=== PATIENT | female | born 1960 | race Caucasian/White ===

== ENCOUNTER 2017-10-20 17:53 | Inpatient (IN) | payer OTHER ==
[~2017-10-20] VITALS: Ht 168.9 cm; Wt 51.4 kg
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
--- NOTE | 2017-10-20 19:47 | CT SCAN REPORT ---
EXAMINATION: CT HEAD WITHOUT CONTRAST CT FACIAL BONES WITHOUT CONTRAST CT CERVICAL SPINE WITHOUT CONTRAST CLINICAL INFORMATION: 56-year-old woman post fall and head injury. COMPARISON: None. TECHNIQUE: Imaging was performed from the skull base to vertex without intravenous administration of contrast. In addition, helical noncontrast CT imaging was acquired through the cervical spine and facial bones and source images were reviewed along with axial reconstructions and sagittal and coronal MPRs. DLP: 1598 mGy-cm FINDINGS: HEAD: No intracranial mass, hemorrhage, or midline shift is visualized. There is moderate ventriculomegaly and diffuse sulcal prominence due to chronic volume loss. There is a lobular appearance of the lateral ventricles suggesting periventricular leukomalacia. No extra-axial collections are identified. FACIAL BONES: There is no evidence of an acute facial bone fracture. There is mild right premaxillary and facial soft tissue bruising. Mild mucosal thickening is seen in the ethmoid air cells. The orbits are unremarkable in appearance. CERVICAL SPINE: There is no evidence of acute cervical spine fracture. Vertebral bodies remain normal in height. Severe chronic degenerative changes are seen with reversal of the normal cervical lordosis and anterolisthesis of C2 on C3, C3 on C4, and C7 on T1. Degenerative endplate remodeling with subchondral sclerosis, marginal osteophyte formation, and severe loss of normal disc space is noted at C4-C5, C5-C6, C6-C7, and C7-T1. There is bulky multilevel facet arthrosis. Degenerative osseous fragmentation is seen at the atlantoaxial articulation. No pre- or paravertebral soft tissue abnormality is identified. Limited assessment of the lung apices is unremarkable. IMPRESSION: 1. No acute intracranial process or discrete facial bone fracture. Right facial soft tissue injury. 2. No acute cervical spine fracture or traumatic subluxation. Severe chronic spondylosis.
--- NOTE | 2017-10-20 19:55 | CT SCAN REPORT ---
EXAMINATION: CT ABDOMEN AND PELVIS WITHOUT CONTRAST CLINICAL INFORMATION: 57-year-old female patient with pelvic, abdominal, and lumbosacral spine pain. COMPARISON: None TECHNIQUE: Multidetector volumetric imaging was performed from the superior aspect of the liver through the pubic symphysis. Sagittal and coronal reformatted images were obtained on the technologist's workstation. Evidently, the patient could not raise her arms for this exam and therefore the study is compromised by beam hardening artifacts. DLP: 292 mGy-cm FINDINGS: MEDICAL RECORD CONSULTANT: Air is seen throughout the small bowel and air mixed with stool throughout the colon. There is mild stool impaction in the rectosigmoid colon. The patient appears cachectic with loss of body fat making interpretation difficult without IV or oral contrast. LUNG BASES: Dependent atelectasis is seen in both lower lobes. LIVER, GALLBLADDER, AND BILIARY TREE: The liver is normal in size, shape, and attenuation. No focal hepatic lesion or biliary ductal dilatation is present. The gallbladder is postprandial in appearance. PANCREAS: Unremarkable. SPLEEN: Unremarkable. ADRENAL GLANDS: Unremarkable. KIDNEYS AND URETERS: The kidneys are normal in size, shape, and attenuation. No hydronephrosis, hydroureter, or calculi seen. No perinephric stranding. BLADDER: Well distended and normal. GASTROINTESTINAL TRACT: Increased burden of formed stool throughout the colon. Mild impaction as mentioned above. ABDOMINAL WALL: No significant hernia is appreciated. LYMPH NODES: Normal. VASCULAR: Unremarkable. PELVIC VISCERA: Normal uterus. OSSEOUS STRUCTURES: Endplate depression involving the vertebral body at L1 may represent a Schmorl's node rather than an old fracture. There is disc disease at L5-S1. IMPRESSION: Increased burden of formed stool throughout the colon. Abnormal vertebral body at L1.
--- NOTE | 2017-10-20 19:59 | RADIOLOGY REPORT ---
EXAMINATION: XR HAND, LEFT CLINICAL INFORMATION: Left hand pain. Trauma. Per chart: Cerebral palsy. Patient unable to extend fingers. COMPARISON: None TECHNIQUE: PA, lateral, and oblique views of the left hand. FINDINGS: The patient has severe flexion contractures of the fingers and universal subluxations of the metacarpal phalangeal joints. No obvious fracture is seen. IMPRESSION: Flexion contractures involving the hand.
[2017-10-20 20:36] LABS: ABSOLUTE BASOPHIL COUNT 0 /CUMM (0.0-0.2); ABSOLUTE EOSINOPHIL COUNT 0.1 /CUMM (0.0-0.7); ABSOLUTE GRANULOCYTE CT 3.6 /CUMM (1.4-6.5); ABSOLUTE LYMPH COUNT 1.2 /CUMM (1.2-3.4); BASOPHIL % 0.3 % (0.0-2.0); EOSINOPHIL % 1.2 % (0-5); MEAN CORPUSCULAR HGB 30.5 PG (27.0-31.0); MEAN CORPUSCULAR VOLUME 92.5 FL (81.0-99.0); MEAN PLATELET VOLUME 9.6 FL (7.4-10.4); PLATELET COUNT 191 /CUMM (130-400); RBC DISTRIBUTION WIDTH 13.7 % (11.5-14.5); RED BLOOD CELL CT 4.32 /CUMM (4.20-5.40); WHITE BLOOD CELL COUNT 5.9 /CUMM (4.8-10.8)
[2017-10-20 20:40] LABS: PT 12.4 SEC (9.4-12.5); PTT 30 SEC (25-37)
--- NOTE | 2017-10-20 22:37 | RADIOLOGY REPORT ---
EXAMINATION: XR HIP, RIGHT CLINICAL INFORMATION: Subcapital fracture of the right hip COMPARISON: CT of the abdomen and pelvis done this evening. TECHNIQUE: AP and attempted frog leg lateral view of the right hip. of the right hip. FINDINGS: The exam confirms the presence of a impacted subcapital fracture of the right hip. A crosstable lateral view was not obtained. There is a significant increased burden of formed stool in the rectosigmoid colon. IMPRESSION: Subcapital fracture of the right hip confirmed.
[2017-10-21] MEDS ORDERED: ZOLOFT100 M1 PO (00:20)
[2017-10-21] MEDS ORDERED: VALPROIC ACID250 M1 PO (00:20)
--- NOTE | 2017-10-21 00:36 | Admission Core Measures ---
Acute Coronary Syndrome (CM) ACS Core Measures Acute Coronary Syndrome Diagnosis No Congestive Heart Failure (NEW) CHF Core Measures Congestive Heart Failure Diagnosis No Cerebrovascular Accident (NEW) CVA Core Measures CVA/TIA Diagnosis No Venous Thromboembolism VTE Core Mp (View Protocol) VTE Risk Factors Age>40 No Mechanical VTE Prophylaxis d/t N/A MechProphylax Ordered No VTE Pharm Prophylaxis d/t NA PharmProphylax ordered Problem List As ranked by this Provider includes Assessment & Plan 1. Closed right hip fracture HOME MEDS Home Med List Sertraline HCl (Zoloft) 100 MG TABLET 1 TAB PO DAILY DEPRESSION (Reported) Valproic Acid 250 MG CAPSULE 3 CAP PO BID SEIZURES (Reported)
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
--- NOTE | 2017-10-21 01:38 | RADIOLOGY REPORT ---
EXAMINATION: XR PORTABLE CHEST CLINICAL INFORMATION: Preop. COMPARISON: None TECHNIQUE: Portable frontal view of the chest was obtained. 12:47 AM FINDINGS: Lung volume is low. Lungs are clear. No pulmonary vascular congestion. Cardiomediastinal contours are normal. There is no pleural effusion and there is no pneumothorax. IMPRESSION: Unremarkable examination.
[2017-10-21 02:48] VITALS: BP 110/60
[2017-10-21 06:34] VITALS: BP 102/60
[2017-10-21 14:08] VITALS: BP 110/58
--- NOTE | 2017-10-21 18:59 | Operative Report ---
Operative/Inv Procedure Report Surgery Date: 10/21/17 Name of Procedure: Repair right impacted femoral neck fracture with multiple cannulated screws. Pre-Operative Diagnosis: Right impacted femoral neck fracture. Post-Operative Diagnosis: Same. Estimated Blood Loss: scant Surgeon/Cab Starter: Jb Hidalgo MD Anesthesia: laryngeal mask airway Monitors: EKG/blood pressure/oxygen saturation. IV Fluids: 800 mL crystalloid. Implants: [place] 6.5 mm partially threaded cancellus screws 4. Urine Output: None. Drains: None. Specimens: None. Microbiology: None. Tourniquet: None. Complications: None known. Condition: Stable. Operative Indication: The patient is a 56-year-old female with cerebral palsy who sustained a mechanical trip and fall very early this morning landing on her right hip and also striking the right side of her face. She was brought to the [facility] emergency room where she underwent CT scanning of the abdomen and pelvis. She was apparently complaining of right lower extremity pain and inability to ambulate. This was communicated nonverbally. The original CT scan did not show any obvious fractures, subluxations, or dislocations. A follow-up read on the CAT scan was suggested that there was an impacted femoral neck fracture. Orthopedic consultation was called. I did review the CAT scan and recommended that we can get better information with plain x-rays of the right hip and pelvis. These were ordered and did confirm an impacted femoral neck fracture. The patient was admitted to the hospital in anticipation of performing a repair of the right impacted femoral neck fracture stabilizing the femoral neck fracture with multiple partially threaded cannulated screws. I did discuss with the patient's brother who is her power of attorney law clerk the risks and benefits and expected outcomes of nonoperative management of the fracture which was discouraged given that the patient is an active ambulator. We did discuss the same with respect to surgical intervention with repair of the femoral neck fracture with multiple cannulated screws. With repair of the femoral neck fracture with multiple cannulated screws. All of the power of attorney law clerk's questions were answered at length. After discussion of these issues and answering all of the power of attorney law clerk's questions, surgical consent was obtained. Operative/Procedure Note Note: The patient was brought to the operating room on her hospital bed. The anesthesia staff administered a general anesthetic via LMA. A dose of IV antibiotics was given for infection prophylaxis. The patient was transferred to the OR table and positioned on the table in standard fashion for right hip repair surgery. This did include placing the perineum down against a well- padded perineal post. The affected right lower extremity was placed into a well -padded leg/ankle/foot sleeve which was overwrapped with Coban for friction and then secured into the ipsilateral traction boot. The contralateral left lower extremity "well leg" was supported on a well-padded well leg sood protecting the peroneal nerve and maintaining the left lower extremity in a position of flexion, abduction, and external rotation so that the C-arm can come in between the legs to image the right hip. The right upper extremity was secured across her body over and about padding to get that out of the way. All bony prominences in general were well-padded. The center board for the fracture table was removed. The fracture table was elevated to maximum height. The C- arm was brought in between the legs and we did confirm that we could adequately image the right hip and proximal femur in both coronal and sagittal planes (AP and lateral views). We did also confirm that this was an impacted femoral neck fracture. The fracture reduction and alignment was felt to be amenable for stabilization with multiple cannulated screws. The C-arm was removed temporarily. The right lower extremity was then prepped and draped in usual sterile fashion. The C-arm was brought back in and we did once again confirm adequate AP visualization of the right hip and proximal femur. We used a Nevarez elevator placed over the anterior hip and thigh to help localize the level of the lesser trochanter. This was marked on the skin as a reference point. We next marked the lateral hip and upper thigh for a a direct lateral approach to the proximal femur and lower intertrochanteric flare of the greater trochanter. The skin incision was created. Sharp dissection was continued down through the skin and subcutaneous tissues. We placed retractors deeper as we continued to dissect down to the subcutaneous tissues. The fascia jay was divided longitudinally and then retracted. We split the fibers of the vastus lateralis directly in line with the rent in the fascia jay. The vastus lateralis was stripped from the lateral femur using a Nevarez elevator extending onto the anterior posterior surfaces of the proximal femoral shaft. Godoy retractors were placed for visualization. We next used the parallel pin guide for the threaded guide pins for the 6.5 mm cannulated screws. The first guidepin was run up beginning inferiorly through the lateral femoral cortex at the level of the lesser trochanter and directing that screw up towards the femoral head. This particular guidepin ran up along the inferior femoral neck on the AP view and along the midaxis on the lateral view of the hip. The guidepin was clearly located within the femoral neck and head without violating the cortex. The guidepin was advanced up to the level of subchondral bone of the femoral head. We next used the parallel pin guide place 3 additional parallel guide pins for 3 additional 6.5 mm partially threaded cancellus screws. This was done under fluoroscopic control creating a imani shaped in arrangement. All guidepins as noted above were advanced the level of the subchondral bone. We next placed appropriate length partially threaded 6.5 mm cannulated screws x4 over the guide pins All screws were tightened down snugly. We did confirm as this was performed that the fracture reduction and alignment was maintained and not shifted with placement of the guidepins and the cannulated screws. We did also confirm that the hardware was positioned and secured satisfactorily. Final AP and lateral fluoroscopic images were saved for hard copy. Attention was directed towards closure. The wound was copiously irrigated multiple times. The fibers of the vastus lateralis were allowed to fall back into more or less normal approximation over the lateral proximal femoral shaft. The wound was irrigated again. The fascia jay was then repaired using 0 Vicryl placed in [id number] fashion. The subcutaneous tissues were irrigated and then repaired in layers with a couple of layers of 0 Vicryl suture placed in interrupted buried fashion to close down the space. A couple of layers were required due to the depth of the adipose tissue. The more superficial subcutaneous tissues were approximated using 2-0 Vicryl placed into the subdermal layer also in simple buried fashion. The skin margins were then approximated with skin stapler. The wound was washed and dried. Adaptic dressings patella staple line followed by sterile gauze dressings and abdominal pads which were held in place. The tape. The center board for the fracture table was returned. The patient's ipsilateral right leg was taken out of the traction boot. The contralateral well leg was taken down out of the well leg sood with both legs placed in supine extension. The patient was awakened from general anesthesia. She was stretcher to the hospital bed and then brought to the recovery room in stable condition having tolerated the procedure well. Findings: 1) Fracture reduction, alignment, and length maintained. 2) Acceptable hardware position and fixation achieved. Discharge Disposition: PACU
[2017-10-21 19:58] VITALS: BP 110/62
--- NOTE | 2017-10-21 21:19 | Cons- Medical ---
Jackie Mccann [birth year]: General Information and HPI Consulting Request Date of Consult: 10/21/17 Requested By: Jb Hidalgo MD Reason for Consult: Comanagement for her chronic medical conditions Source of Information: family, old records Exam Limitations: unable to give history History of Present Illness: Patient is 56-year-old female with past medical history significant for cerebral palsy nonverbal at baseline, epilepsy/seizure disorder, depression came after mechanical fall resulted in impacted right femoral neck fracture admitted under surgical services currently status post repair head impacted femoral neck fracture with multiple cannulated screw use. Postoperatively she remained hemodynamically stable. She denied any chest pain, denying any pain at surgery site. Her surgery went well and she was alert and saturating fine. Patient had baseline coughing while eating but family was agreeable to start her on regular diet. At baseline she is able to ambulate with assist of one or 2 people. Denied any frequent falls for any fracture in the past. Allergies/Medications Allergies: Coded Allergies: No Known Drug Allergies (Intermediate, NONE 10/20/17) Current Medications: Current Medications Sig/Chip Start time Last Medication Dose Route Stop Time Status Admin Acetaminophen 1,000 MG Q6H 10/21 2014 AC 10/22 N/A 1 UNIT IV 10/22 1429 0104 Cefazolin Sodium 2 GM IQ8 10/22 0000 AC 10/22 N/A 1 UNIT IV 10/22 0829 0006 Dextrose/Sodium 1,000 ML .[id number] 10/20 2345 AC 10/21 Chloride IV 1422 Divalproex Sodium 750 MG BID 10/21 1000 DC 10/21 PO 1033 Fentanyl Citrate 250 MCG .STK-MED ONE 10/21 1538 DC IM 10/21 1539 Heparin Sodium 5,000 UNIT Q8 10/21 0600 AC 10/21 (Porcine) SC 2224 Morphine Sulfate 2 MG Q2P PRN 10/21 2014 AC 10/21 IV 2303 Morphine Sulfate 4 MG Q4 HRS NEEDED PRN 10/21 0600 DC 10/21 IV 1422 Morphine Sulfate 4 MG Q4 HRS NEEDED PRN 10/21 0015 DC 10/21 IV 0018 Patient Medication 1 ED ONE ONE 10/21 1145 DC 10/21 Teaching ED 10/21 1146 2046 Sertraline HCl 100 MG DAILY 10/21 1000 AC 10/21 PO 1033 Review of Systems Review of Systems Constitutional: Denies: chills, diaphoresis. EENTM: Reports: see HPI. Cardiovascular: Denies: chest pain, edema. Respiratory: Denies: cough, hemoptysis. GI: Denies: abdominal pain, bloating. Genitourinary: Denies: discharge, dysuria. Musculoskeletal: Reports: see HPI. Neurological/Psychological: Reports: see HPI. Past History Travel History Traveled to [place] past 21 day No Medical History Blood Transfusion Hx: No Neurological: CEREBRAL PALSY EPILEPSY EENT: NONE Cardiovascular: NONE Respiratory: pneumonia Gastrointestinal: constipation Hepatic: NONE Renal: urinary incontinence Musculoskeletal: fracture Psychiatric: anxiety, depression Endocrine: NONE Blood Disorders: NONE Cancer(s): NONE GIFTS OFFICER/Reproductive: NONE Surgical History Surgical History: non-contributory Psychosocial History Where Do You Live? Home Services at Home: None Smoking Status: Never Smoked ETOH Use: denies use Exam & Diagnostic Data Last 24 Hrs of Vital Signs/I&O Vital Signs Date Time Temp Pulse Resp B/P B/P Pulse O2 O2 Flow FiO2 Mean Ox Delivery Rate 10/22 0000 98 Nasal 2.0L Cannula 10/21 2250 98.1 74 20 132/86 98 Room Air 10/21 1958 98.1 70 16 110/62 93 Nasal 2.0L Cannula 10/21 1435 Room Air 10/21 1408 98.6 79 20 110/58 92 Room Air 10/21 0634 98.8 86 20 102/60 90 Room Air 10/21 0300 90 Room Air 10/21 0248 98.3 79 20 110/60 90 Room Air Intake & Output 10/22 0800 10/22 0000 10/21 1600 Intake Total 855 560 Output Total Balance 855 560 Intake, IV 375 500 Intake, Oral 480 60 Patient 99 lb 15.99 oz Weight Weight Reported by Patient Measurement Method Physical Exam General Appearance: alert, comfortable Head: atraumatic Respiratory: normal breath sounds Cardiovascular: regular rate/rhythm Gastrointestinal: soft, non-tender Last 24 Hrs of Labs/Jack: NONE Diagnostic Data CXR Results IMPRESSION: Unremarkable examination. Other Results IMPRESSION: Subcapital fracture of the right hip confirmed. Assessment/Plan Assessment/Plan Patient is a 56-year-old female with history of cerebral palsy, seizure disorder and depression came to [place] ER after a mechanical fall resulted in an impacted right femoral neck fracture status post repair right impacted femoral neck fracture with multiple cannulated screws. During her hospital stay following issues is to be addressed 1. Femoral neck fracture status post repair 2. History of cerebral palsy and seizure disorder 3. History of anxiety Plan 1. Patient should continue on her home dose of valproic acid 250 mg twice a day 2. Please continue Zoloft 100 mg 3 times a day 3. Adequate analgesia 4. Pharmacological DVT prophylaxis 5. Formal swallow evaluation if needed 6. Physical therapy evaluation and treatment Consult Acknowledgment - Thank you for your consult request. Brannon Tay MD 10/22/17 1529: General Information and HPI Allergies/Medications Home Med List: Sertraline HCl (Zoloft) 100 MG TABLET 1 TAB PO DAILY DEPRESSION (Reported) brand name, no generic Valproic Acid 250 MG CAPSULE 3 CAP PO BID SEIZURES (Reported) brand name, no generic Exam & Diagnostic Data Last 24 Hrs of Vital Signs/I&O Vital Signs Date Time Temp Pulse Resp B/P B/P Pulse O2 O2 Flow FiO2 Mean Ox Delivery Rate 10/22 1458 98.3 91 20 122/62 93 Nasal 2.0L Cannula 10/22 1122 Room Air 10/22 1106 Room Air 10/22 1058 Room Air 10/22 0645 98.0 82 20 90/50 97 Nasal 2.0L Cannula 10/22 0000 98 Nasal 2.0L Cannula 10/21 2250 98.1 74 20 132/86 98 Room Air 10/21 1958 98.1 70 16 110/62 93 Nasal 2.0L Cannula Intake & Output 10/22 1600 10/22 0800 10/22 0000 Intake Total 730 855 Output Total Balance 730 855 Intake, IV 650 375 Intake, Oral 80 480 Patient 99 lb Weight Assessment/Plan Consult Acknowledgment - Thank you for your consult request. Attending MD Review Statement Attending Statement Attending MD Statement: examined this patient, discuss w/resident/PA/MODELING ANALYST, agreed w/resident/PA/MODELING ANALYST, discussed with family, reviewed EMR data (avail), reviewed images, amended to note Attending Assessment/Plan: Ms. Keller is seen prior to her surgery. History obtained from family notes that she had a mechanical fall striking the right side of her face and her right hip on the evening prior to her admission. There was no loss of consciousness she was unable to bear weight on her right lower extremity. She was evaluated in the emergency department with negative radiographic findings of her head and face but an impacted fracture of her right femoral neck was noted. 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 She is also on current medication for epilepsy and has recently been treated for depression. She is allergic to delay. She was hospitalized for pneumonia in 1991. View of systems is as noted above. Her vital signs are stable. Physical exam is as noted above. Problems: -Right hip fracture -Quadriparesis secondary to cerebral palsy -Seizure disorder -Depression Plan: -Management of her fracture as per the orthopedic team -Vital signs as per routine -Analgesia as per orthopedics -Continue her maintenance medications.
[2017-10-21 22:50] VITALS: BP 132/86
[2017-10-22 06:45] VITALS: BP 90/50
--- NOTE | 2017-10-22 08:15 | RADIOLOGY REPORT ---
EXAMINATION: XR HIP, RIGHT CLINICAL INFORMATION: 56-year-old female with subcapsular fracture of the right hip, for pinning. COMPARISON: Right hip done on 10/20/2017. TECHNIQUE: Frontal and frog leg lateral fluoroscopic spot views of the right hip were obtained at the time of the procedure. Fluoroscopy time: 40.2 seconds. FINDINGS: Multiple radiopaque screws are seen placed across the right femoral neck, appear in good position. The bony alignment is intact. The soft tissues are unremarkable. IMPRESSION: Postsurgical changes at right hip showing intact hardware and satisfactory alignment.
--- NOTE | 2017-10-22 10:40 | PN- Orthopedic ---
Bethanie Crowley 10/22/17 1024: Subjective Subjective: Patient is nonverbal and unable to provide a history at this time. Brother is at bedside and is able to provide some medication. The first issue is that the mother usually provides her 24-hour care however, she is ill at this time and is unable to perform/help with her ADLs so they are requesting short-term rehabilitation placement post discharge. The next issue is that nutrition felt that she needed a swallow evaluation. At home the family gives her some liquids and a regular diet which is cut up and not pureed. They have not had any issues with this including aspiration pneumonia. She has also had some recent weight loss after her primary caregiver got sick and they're working on getting her back to her baseline of 123 pounds. He has been doing well with adding protein supplementations, high-calorie diet, and increased protein and are requesting that this be continued upon discharge. Her brother feels that the pain is well- controlled at this time. She has no issues with taking pills and we discussed switching from IV pain medication to by mouth medications and he is in agreement with this plan. He also states that she has not had a bowel movement since prior to admission and has never had a bowel regimen in the past. No other issues or complaints per nursing. Objective Vital Signs and I&Os Vital Signs Date Time Temp Pulse Resp B/P B/P Pulse O2 O2 Flow FiO2 Mean Ox Delivery Rate 10/22 0645 98.0 82 20 90/50 97 Nasal 2.0L Cannula 10/22 0000 98 Nasal 2.0L Cannula 10/21 2250 98.1 74 20 132/86 98 Room Air 10/21 1958 98.1 70 16 110/62 93 Nasal 2.0L Cannula 10/21 1435 Room Air 10/21 1408 98.6 79 20 110/58 92 Room Air Intake & Output 10/22 1600 10/22 0800 10/22 0000 10/21 1600 10/21 0800 10/21 0000 Intake Total 730 855 560 400 0 Output Total Balance 730 855 560 400 0 Intake, IV 650 375 500 400 Intake, Oral 80 480 60 0 0 Number 0 Bowel Movements Patient 99 lb 99 lb 15.99 oz 103 lb 108 lb Weight Weight Reported by Patient Reported by Patient Measurement Method Physical Exam: General: Alert, awake, no acute distress Abdomen: Soft, nontender, nondistended Hip: Right hip dressing is clean, dry, and intact with minimal serosanguineous strikethrough, no surrounding skin edema, erythema, ecchymosis, signs of hematoma or seroma Extremities: Mild contractures x 4, no clubbing, edema, or cyanosis Current Medications: Current Medications Sig/Chip Start time Last Medication Dose Route Stop Time Status Admin Acetaminophen 325 MG Q4P PRN 10/22 0845 AC PO Acetaminophen 1,000 MG Q6H 10/21 2014 AC 10/22 N/A 1 UNIT IV 10/22 1429 1022 Cefazolin Sodium 2 GM IQ8 10/22 0000 DC 10/22 N/A 1 UNIT IV 10/22 0829 0830 Dextrose/Sodium 1,000 ML .[id number] 10/20 2345 10/21 Chloride IV 1422 Divalproex Sodium 750 MG BID 10/21 1000 DC 10/21 PO 1033 Docusate Sodium 100 MG BID 10/22 1000 AC PO Fentanyl Citrate 250 MCG .STK-MED ONE 10/21 1538 DC IM 10/21 1539 Haloperidol 5 MG .STK-MED ONE 10/21 1850 DC IM 10/21 1851 Heparin Sodium 5,000 UNIT Q8 10/21 0600 10/22 (Porcine) SC 0459 Morphine Sulfate 2 MG Q2P PRN 10/22 0845 AC IV Morphine Sulfate 2 MG Q2P PRN 10/21 2014 AC 10/22 IV 1020 Morphine Sulfate 4 MG Q4 HRS NEEDED PRN 10/21 0600 DC 10/21 IV 1422 Oxycodone/ 1 TAB Q4P PRN 10/22 0845 AC Acetaminophen PO Oxycodone/ 2 TAB Q4P PRN 10/22 0845 AC 10/22 Acetaminophen PO 1020 Patient Medication 1 ED ONE ONE 10/21 1145 DC 10/21 Teaching ED 10/21 1146 2046 Polyethylene Glycol 17 GM DAILY 10/22 1000 AC PO Sertraline HCl 100 MG DAILY 10/21 1000 AC 10/22 PO 1019 Results Last 48 Hours of Labs: Laboratory Tests 10/20 2018 Chemistry Sodium (137 - 145 mmol/L) 141 Potassium (3.5 - 5.1 mmol/L) 4.0 Chloride (98 - 107 mmol/L) 98 Carbon Dioxide (22 - 30 mmol/L) 32 H Anion Gap (5 - 16) 10 BUN (7 - 17 mg/dL) 19 H Creatinine (0.5 - 1.0 mg/dL) 0.7 Estimated GFR (>60 ml/min) > 60 BUN/Creatinine Ratio (7 - 25 %) 27.1 H Glucose (65 - 99 mg/dL) 106 H Calcium (8.4 - 10.2 mg/dL) 10.3 H Total Bilirubin (0.2 - 1.3 mg/dL) 0.6 AST (14 - 36 U/L) 38 H ALT (9 - 52 U/L) 32 Alkaline Phosphatase (<127 U/L) 70 Total Protein (6.3 - 8.2 g/dL) 7.3 Albumin (3.5 - 5.0 g/dL) 4.1 Globulin (1.9 - 4.2 gm/dL) 3.2 Albumin/Globulin Ratio (1.1 - 2.2 %) 1.3 Coagulation PT (9.4 - 12.5 SEC) 12.4 INR (0.90 - 1.19) 1.14 APTT (25 - 37 SEC) 30 Hematology CBC w Diff NO MAN DIFF REQ WBC (4.8 - 10.8 /CUMM) 5.9 RBC (4.20 - 5.40 /CUMM) 4.32 Hgb (12.0 - 16.0 G/DL) 13.2 Hct (37 - 47 %) 40.0 MCV (81.0 - 99.0 FL) 92.5 MCH (27.0 - 31.0 PG) 30.5 MCHC (33.0 - 37.0 G/DL) 33.0 RDW (11.5 - 14.5 %) 13.7 Plt Count (130 - 400 /CUMM) 191 MPV (7.4 - 10.4 FL) 9.6 Gran % (42.2 - 75.2 %) 61.0 Lymphocytes % (20.5 - 51.1 %) 20.3 L Monocytes % (1.7 - 9.3 %) 17.2 H Eosinophils % (0 - 5 %) 1.2 Basophils % (0.0 - 2.0 %) 0.3 Absolute Granulocytes (1.4 - 6.5 /CUMM) 3.6 Absolute Lymphocytes (1.2 - 3.4 /CUMM) 1.2 Absolute Monocytes (0.10 - 0.60 /CUMM) 1.0 H Absolute Eosinophils (0.0 - 0.7 /CUMM) 0.1 Absolute Basophils (0.0 - 0.2 /CUMM) 0 Recent Imaging Studies: Right hip x-ray 10/21/2017: Postsurgical changes at right hip showing intact hardware and satisfactory alignment. Chest x-ray 10/21/2017: Lung volume is low. Lungs are clear. No pulmonary vascular congestion. Cardiomediastinal contours are normal. There is no pleural effusion and there is no pneumothorax. Assessment/Plan Assessment/Plan This is a 56-year-old female past medical history significant for cerebral palsy and epilepsy who is postoperative day #1 status post repair of right femoral neck fracture with cannulated screws. Progressing well postoperatively. Plan for today will be as follows: 1. Speech evaluation for dietary recommendations and swallow evaluation to follow-up 2. Continue with physical therapy and partial weightbearing 3. Continue IV pain medications for breakthrough, by mouth pain medications ordered as well as a bowel regimen 4. Continue home medications 5. Antibiotics discontinued 6. Continue pharmaceutical and mechanical DVT prophylaxis, will start Eliquis tomorrow 7. Keep dressing in place, team to change dressing tomorrow 8. We'll discuss short-term rehabilitation placement with case management 8. Case will be discussed with Dr. Hidalgo to make sure he is in agreement with the plan of care Problem List: 1. Subcapital fracture of right hip 2. Closed right hip fracture 3. Status post-operative repair of hip fracture Core Measures Venous Thromboembolism VTE Risk Factors Age>40 No Mechanical VTE Prophylaxis d/t N/A MechProphylax Ordered No VTE Pharm Prophylaxis d/t NA PharmProphylax ordered Jb Hidalgo MD 10/22/17 1313: Attending MD Review Statement Attending Statement Attending MD Statement: examined this patient, discuss w/resident/PA/WET MIXER, agreed w/resident/PA/WET MIXER, discussed with family Talia Kelly 10/22/17 1531: Addendum Addendum Per Swallow Eval Recommendations: Assessment: CONSULT RECEIVED, CHART REVIEWED. PT STARTED ON REGULAR DIET W THINS. FAMILY PRESENT - REPORT PT HAS BEEN COUGHING W PO INTAKE "FOR YEARS" BUT DENY ANY RECENT PNEUMONIAS. THEY REPORT PT NON VERBAL BUT COMMUNICATES VIA SIGN. THEY ALSO REPORT PT FEEDS HERSELF. FAMILY REPORTS PT NOT A COGNITIVE BASELINE AT THIS TIME WHICH THEY FEEL IS D/T PAIN MEDS. PT SEEN AT BEDSIDE - AWAKE, ALERT, SEATED UPRIGHT IN CERVICAL EXTENSION POSITION. INTERMITTENT SIMPLE COMMAND FOLLOWING. DOES ATTEMPT TO SIGN TO COMMUNICATE. REGULAR LUNCH TRAY AT BEDSIDE, FAMILY ASSISTING W SELF FEEDING. PT SEEN SELF ADMINSITERING 3 SIPS THINS FROM SIPPY CUP W RED LIP ROUNDING/ORAL CONTAINMENT, REDUCED ORAL CONTROL BUT SEEMINGLY PROMPT HYOLARYNGEAL ELEVATION TO PALPATION W/O OVERT S/S OF ASPRIATION W/O CHANGE IN RESPIRATIONS. TRIAL PUREE FED BY FAMILY W SLOWED ORAL TRANSIT BUT FULL INTRAORAL CLEARANCE AND NO OVERT S/S OF ASPIRATION. TRIAL SOFT SOLIDS (FAMILY DID NOT FEED PT ANY "HARD" SOLIDS SUCH RAW CARROTS) W PROLONGED, INEFFICIENT, REDUNDANT MASTICATION W MILD ORAL RESIDUAL WHICH FAMILY CUED PT TO TAKE LIQUID SIP WHICH LARGELY CLEARED. OVERALL SUSPECT PT'S SWALLOW FUNCTION AT OR CLOSE TO BASE- LINE. SPOKE W FAMILY AT LENGTH RE: DIET OPTIONS. THEY ARE ADAMANTLY AGAINST PUREE/GROUND DIET BUT WERE RECEPTIVE TO DOWNGRADE TO SOFT CHOPPED DIET. ALSO DISCUSSED PT'S CURRENT SWALLOW STATUS, ASP RISKS/CONSEQUENCES AT LENGTH. FAMILY VERBALIZED UNDERSTANDING BUT WISH TO CONT ON SOFT/ CHOPPED W THINS REC - FULL CHOPPED W THIN LIQUIDS; MEDS IN PUREE; ASPIRATION PRECAUTIONS; SMALL BITES/SIPS; PT SEATED UPRIGHT; ALLOW PT TO SELF FEED ABLE. ST TO F/U FOR DIET TOLERANCE, STRATEGY TRAINING AND FAMILY EDUCATION. RECS/RESULTS D/W PT, FAMILY AND NURSING.
[2017-10-22 14:58] VITALS: BP 122/62
--- NOTE | 2017-10-22 15:39 | Patient Discharge Instructions ---
See Addendum Discharge Instructions General Discharge Information You were seen/treated for: Right femoral neck fracture You had these procedures: ORIF right femoral neck with cannulated screw placement Watch for these problems: Increasing pain despite the use of pain medications Swelling, Redness, drainage from incision Fever greater than 101.5 Do not soak the wound: Yes Other wound care: Keep wound clean and dry Special Instructions: Partial weight bearing LLE pt has baseline urinary incontinence, retained while in hospital, post op needed fagan, removed 10/25. please straight cath or replace fagan prn Diet Continue normal diet: Yes Recommended Diet: Regular, soft, chopped Activity Full Activity/No Limits: No Activity Self Limited: Yes Acute Coronary Syndrome Inclusion Criteria At DC or during hospital stay patient has or had the following: ACS DIAGNOSIS No Discharge Core Measures Meds if any: Prescribed or Continued at Discharge Meds if any: NOT Prescribed or Continued at Discharge Congestive Heart Failure Inclusion Criteria At DC or during hospital stay patient has or had the following: CHF DIAGNOSIS No Discharge Core Measures Meds if any: Prescribed or Continued at Discharge Meds if any: NOT Prescribed or Continued at Discharge Cerebrovascular accident Inclusion Criteria At DC or during hospital stay patient has or had the following: CVA/TIA Diagnosis No Discharge Core Measures Meds if any: Prescribed or Continued at Discharge Meds if any: NOT Prescribed or Continued at Discharge Venous thromboembolism Inclusion Criteria VTE Diagnosis No VTE Type NONE VTE Confirmed by (Test) NONE Discharge Core Measures - Per Current guidelines, there needs to be overlap - treatment for the first 5 days of Warfarin therapy. - If discharged on Warfarin prior to 5 days of - overlap therapy, the patient will need to be - assessed for post discharge needs including - *Post discharge parental anticoagulation - *Warfarin and/or parental anticoagulation education - *Follow up date to check INR post discharge At least 5 days overlap therapy as Inpatient No Meds if any: Prescribed or Continued at Discharge Note: Overlap Therapy is Warfarin and Anticoagulant Meds if any: NOT Prescribed or Continued at Discharge
[2017-10-22] MEDS ORDERED: COLACE100 M1 PO (15:41)
[2017-10-22] MEDS ORDERED: MIRALAX17 G1 PO (15:41)
[2017-10-22] MEDS ORDERED: PERCOCET 5-3251 EACH PO (15:41)
[2017-10-22] MEDS ORDERED: ELIQUIS2.5 M1 PO (15:41)
--- NOTE | 2017-10-22 15:41 | PN- Att Addend ---
Attending Addendum Attending Brief Note Ms. Johnson is status post repair of her right hip fracture. She is now on oral analgesics with when necessary parenteral analgesia. She is now on her maintenance medications and tolerating by mouth. Constipation has been noted. Her vital signs are stable but she is requiring 2 L of nasal cannula oxygen at this time. She is in no acute distress and responds appropriately with gestures to verbal queries. Her pulmonary and cardiac exams are benign. Postoperative radiographic studies are satisfactory. A swallowing evaluation has been obtained which recommended thin liquids and chopped foods with medications and pure. Patient precautions were also recommended. Continuing postoperative management of her fracture by orthopedics. They are providing adequate analgesia. We are continuing physical therapy. She is presently receiving subcutaneous heparin and mechanical means for DVT prophylaxis. She has been begun on a bowel prep for her constipation.
--- NOTE | 2017-10-22 15:49 | Surgical Discharge Summary ---
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 Home Who Do You Live With? Cousin Services at Home: None What is Your Primary Language? Georgian ETOH Use: denies use Review of Systems: See H&P Hospital Course Course Attending Physician: Jb Hidalgo MD Primary Care Physician: Brannon Tay MD Hospital Course: Patient was admitted to the hospital after sustaining a R femoral neck fracture. She underwent and ORIF which consisted of cannulated screw placement. She tolerated the procedure well. She was transferred to a general surgical floor. She was evaluated by nutritiional services as well as speech pathology for a swallow evaluation. Recommendations were made and followed. She had urinary retention which required a Glez catheter, Glez catheter was removed on 10/25, trial of void ensued, she may need replacement of Glez catheter or straight cath while at [facility], she has baseline urinary incontinence. Her vital signs were stable and within normal limits post operatively. Her neurovascular status was intact. She was deemed appropriate for discharge to snf. Allergies: Coded Allergies: No Known Drug Allergies (Intermediate, NONE 10/20/17) Disposition Summary Disposition Principal Diagnosis: Right hip fracture Additional Diagnosis: None Discharge Disposition: SNF Discharge Instructions General Discharge Information Code Status: Full Code Patient's Diet: Regular, soft chopped, advance as tolerated Patient's Activity: TTWB Follow-Up Instructions/Appts: Follow up with Dr. Hidalgo in two weeks Medications at Discharge Discharge Medications: Continue taking these medications: Valproic Acid (Valproic Acid) 250 MG CAPSULE 3 Capsule ORAL TWICE DAILY Qty = 180 Instructions: brand name, no generic Sertraline HCl (Zoloft) 100 MG TABLET 1 Tablet ORAL DAILY Qty = 30 Instructions: brand name, no generic Start taking the following new medications: Oxycodone HCl/Acetaminophen (Percocet 5-325 MG Tablet) 5 MG-325 MG TABLET 1-2 Tablet ORAL EVERY 4-6 HOURS as needed for PAIN Qty = 36 No Refills Apixaban (Eliquis) 2.5 MG TABLET 1 Tablet ORAL TWICE DAILY Qty = 84 No Refills Polyethylene Glycol 3350 (Miralax) 17 GRAM POWD.PACK 1 Packet ORAL DAILY Qty = 7 No Refills Instructions: dissolve in water, DISCONTINUE USE IF YOU DEVELOP LOOSE STOOL OR DIARRHEA Docusate Sodium (Colace) 100 MG CAPSULE 1 Capsule ORAL TWICE DAILY Qty = 14 No Refills Instructions: DISCONTINUE USE IF YOU DEVELOP LOOSE STOOL OR DIARRHEA
--- NOTE | 2017-10-22 16:22 | PN- Medicine Consult ---
Assessment/PlanMedical Consult Assessment/Plan Assessment: Patient is a 56-year-old female with past medical history of cerebral palsy, epilepsy, depression presented with a fall and had right impacted femoral neck fracture which was repaired with multiple cannulated screw on 10/20/2017.Todays postop day 2. Vital signs -temperature 98.8, pulse rate 91, respiratory 20, blood pressure 182 /62, SPO2 93% 2 L of nasal cannula. Blood workup -not done Plan: * Continue postop management as per surgery. * Continue pain management as per surgery. * Bowel regimen for the constipation * Continue all her previous medication as before * Currently on soft chopped diet * Physical therapy * DVT prophylaxis Problem List: 1. Status post-operative repair of hip fracture
--- NOTE | 2017-10-22 16:39 | PN- Medicine Consult ---
Assessment/PlanMedical Consult Assessment/Plan Assessment: Patient is a 56-year-old female with past medical history of cerebral palsy, epilepsy, depression presented with a fall and had right impacted femoral neck fracture which was repaired with multiple cannulated screw on 10/20/2017.Todays postop day 2. Patient will go for rehabilitation at [facility]. The family was very much concerned about giving the antiepileptic tablet valproic acid, of same generic/brand as they were using at home. Vital signs -temperature 98.8, pulse rate 91, respiratory 20, blood pressure 182 /62, SPO2 93% 2 L of nasal cannula. Blood workup -not done Pain score 5,7 Plan: * Continue postop management as per surgery. * Continue pain management as per surgery.We can think about patch for pain ( fantanyl/lidocain) * Bowel regimen for the constipation * Continue all her previous medication as before - Valproic acid 250mg 3Tab BID * Currently on soft chopped diet * Physical therapy * DVT prophylaxis Problem List: 1. Status post-operative repair of hip fracture Subjective Subjective: Patient seen and examined at the bedside she was complaining of pain in the right hip. discussed with the family they requested to prescribe the valproic acid, with the same generic/brand before patient would be discharged to [facility]. Review of Systems Constitutional: Reports: no symptoms. Musculoskeletal: Reports: joint pain. Objective Last 24 Hrs of Vital Signs/I&O Vital Signs Date Time Temp Pulse Resp B/P B/P Pulse O2 O2 Flow FiO2 Mean Ox Delivery Rate 10/22 1558 Nasal 2.0L Cannula 10/22 1458 98.3 91 20 122/62 93 Nasal 2.0L Cannula 10/22 1122 Room Air 10/22 1106 Room Air 10/22 1058 Room Air 10/22 0645 98.0 82 20 90/50 97 Nasal 2.0L Cannula 10/22 0000 98 Nasal 2.0L Cannula 10/21 2250 98.1 74 20 132/86 98 Room Air 10/21 1958 98.1 70 16 110/62 93 Nasal 2.0L Cannula Intake & Output 10/22 1600 10/22 0800 10/22 0000 Intake Total 730 855 Output Total Balance 730 855 Intake, IV 650 375 Intake, Oral 80 480 Patient 44.906 kg Weight Physical Exam General Appearance: well developed/nourished, alert, awake, comfortable Cardiovascular: regular rate/rhythm Respiratory: normal breath sounds, chest non-tender Peripheral Pulses: 4+ dorsalis pedis (R), 4+ dorsalis pedis (L) Extremities: normal inspection Current Medications: Current Medications Sig/Chip Start time Last Medication Dose Route Stop Time Status Admin Acetaminophen 325 MG Q4P PRN 10/22 0845 AC PO Acetaminophen 1,000 MG Q6H 10/21 2014 DC 10/22 N/A 1 UNIT IV 10/22 1429 1545 Apixaban 2.5 MG BID 10/23 1000 AC PO Cefazolin Sodium 2 GM IQ8 10/22 0000 DC 10/22 N/A 1 UNIT IV 10/22 0829 0830 Dextrose/Sodium 1,000 ML .[id number] 10/20 2345 DC 10/21 Chloride IV 1422 Divalproex Sodium 750 MG BID 10/21 1000 DC 10/21 PO 1033 Docusate Sodium 100 MG BID 10/22 1000 AC 10/22 PO 1142 Haloperidol 5 MG .STK-MED ONE 10/21 1850 DC IM 10/21 1851 Heparin Sodium 5,000 UNIT Q8 10/21 0600 AC 10/22 (Porcine) SC 10/22 2201 1306 Morphine Sulfate 2 MG Q2P PRN 10/22 0845 AC IV Morphine Sulfate 2 MG Q2P PRN 10/21 2014 AC 10/22 IV 1319 Morphine Sulfate 4 MG Q4 HRS NEEDED PRN 10/21 0600 DC 10/21 IV 1422 Oxycodone/ 1 TAB Q4P PRN 10/22 0845 AC Acetaminophen PO Oxycodone/ 2 TAB Q4P PRN 10/22 0845 AC 10/22 Acetaminophen PO 1428 Patient Medication 1 ED ONE ONE 10/22 1345 DC 10/22 Teaching ED 10/22 1346 1545 Polyethylene Glycol 17 GM DAILY 10/22 1000 AC 10/22 PO 1142 Sertraline HCl 100 MG DAILY 10/21 1000 AC 10/22 PO 1019 Results Last 24 Hrs Lab/Jack Results: Not done Recent Imaging Studies: CXR (10/21) -Unremarkable examination. Hip Xray -Postsurgical changes at right hip showing intact hardware and satisfactory alignment.
[2017-10-22 21:54] LABS: ABSOLUTE BASOPHIL COUNT 0 /CUMM (0.0-0.2); ABSOLUTE EOSINOPHIL COUNT 0.2 /CUMM (0.0-0.7); ABSOLUTE GRANULOCYTE CT 2.4 /CUMM (1.4-6.5); ABSOLUTE LYMPH COUNT 0.9 /CUMM (1.2-3.4); ABSOLUTE MONOCYTE COUNT 0.8 /CUMM (0.10-0.60); BASOPHIL % 0.3 % (0.0-2.0); EOSINOPHIL % 4.5 % (0-5); GRANULOCYTE % 56.7 % (42.2-75.2); MEAN CORPUSCULAR HGB CONC 33.5 G/DL (33.0-37.0); MEAN CORPUSCULAR VOLUME 92.4 FL (81.0-99.0); MEAN PLATELET VOLUME 9.1 FL (7.4-10.4); PLATELET COUNT 154 /CUMM (130-400); RBC DISTRIBUTION WIDTH 13.3 % (11.5-14.5); RED BLOOD CELL CT 3.37 /CUMM (4.20-5.40); WHITE BLOOD CELL COUNT 4.3 /CUMM (4.8-10.8)
[2017-10-22 22:00] LABS: HEMATOCRIT 31.1 % (37-47)
[2017-10-22 22:30] VITALS: BP 116/70
--- NOTE | 2017-10-22 23:05 | RADIOLOGY REPORT ---
EXAMINATION: XR PORTABLE CHEST CLINICAL INFORMATION: Postop fever COMPARISON: 10/21/2017 TECHNIQUE: Portable frontal view of the chest was obtained. FINDINGS: Left basilar atelectasis or infiltrate. Mild change at the right base. The upper lung zones are grossly clear. IMPRESSION: Left basilar atelectasis/infiltrate. More mild changes at the right base
[2017-10-23 06:20] VITALS: BP 124/62
--- NOTE | 2017-10-23 08:41 | PN- Orthopedic ---
Surgical Brief Attending Note Brief Attending Note: Patient seen and examined this morning. Mother and brother at bedside. She is doing well; per mother, not complaining of pain but tired today. Eating breakfast with assistance. Low grade temp to 101.1 overnight, work-up shows low WBC and low H/H, but no other concerns. Exam: RLE Dressing to right hip clean, dry, intact No evidence of pain with palpation of right hip and thigh. No tenderness with palpation of knee; knee held in flexion No evidence of calf pain with palption Foot warm, well-perfused. AM temp 98.4 WBC 4.3 H/H 10.4/31.1 A/P: 56yo F with hx of cerebral palsy and epilepsy, now POD#2 CRPP right femoral neck fracture. Low grade temps overnight, evaluation pending but temps have trended down, likely due to atelectasis. TTWB RLE with assistance Physical therapy; out of bed to chair Pain control, bowel regimen Continue home medications Appreciate speech eval/diet recommendations Continue pharmaceutical and mechanical DVT prophylaxis, Eliquis today Short-term rehabilitation placement pending
--- NOTE | 2017-10-23 15:09 | PN- Att Addend ---
Attending Addendum Attending Brief Note Ms. Keller was interviewed and examined. Her EMR was reviewed. Her brother and [id number] were present. Appear from her gestures that she was in some pain after being positioned. Tmax was 101.1. Her heart and respiratory rates and blood pressure stable. At times she has had decreased oxygen saturations but they are usually associated with breath-holding post repositioning. She is somewhat agitated but does not appear to be in any distress. Her lungs are clear anteriorly. Her heart rate is normal and regular. H&H had decreased to approximately 10/30 today. WBC is slightly low. Electrolytes and renal function are all normal. Her urine culture is negative. -Should continue postoperative management of her right hip fracture as per orthopedics. -Are continuing bowel prep to treat her constipation. -Perhaps considering a ago administration of analgesia with morphine sulfate when necessary would improve her tolerance of positioning and intermittent oxygen desaturation.
[2017-10-23 22:34] VITALS: BP 102/52
[2017-10-24 06:20] VITALS: BP 118/56
--- NOTE | 2017-10-24 08:55 | PN- Orthopedic ---
See Addendum Subjective Subjective: Reportedly pain not well controlled. She wasn't assessed by PT yesterday, apparently because the order was placed too late in the day. Ongoing constipation despite fleet given yesterday. Reported temp 101 yesterday. Fagan intentionally left in placed due to ongoing constipation. The patient desats at times ?breath holding. Objective Vital Signs and I&Os Vital Signs Date Time Temp Pulse Resp B/P B/P Pulse O2 O2 Flow FiO2 Mean Ox Delivery Rate 10/24 0620 98.6 89 20 118/56 99 Nasal Cannula 10/24 0000 96 Nasal 2.0L Cannula 10/23 2234 96.9 95 20 102/52 96 Nasal 2.0L Cannula 10/23 1457 97.5 90 22 97 10/23 1111 Nasal 2.0L Cannula Intake & Output 10/24 1600 10/24 0800 10/24 0000 10/23 1600 10/23 0800 10/23 0000 Intake Total 250 260 800 120 600 Output Total 275 350 700 250 Balance -25 -90 100 -130 600 Intake, IV 10 20 Intake, Oral 240 240 800 120 600 Output, Urine 275 350 700 250 Patient 113 lb 114 lb Weight Weight Bed scale Bed scale Measurement Method Physical Exam: General - alert and awake. moaning intermittently. no acute distress. Lungs - decreased breath sounds b/l bases. clear. Cardiac - s1s2 reg. Abdomen - soft. nontender. - fagan in place Extremities - warm bilaterally. right hip dressing removed. incision well approximated with dominic. no erythema or exudates. athrombics in place. contracted at baseline. Current Medications: Current Medications Sig/Chip Start time Last Medication Dose Route Stop Time Status Admin Acetaminophen 1,000 MG Q6H 10/25 0745 AC N/A 1 UNIT IV 10/25 0259 Acetaminophen 325 MG Q4P PRN 10/23 0745 DC PO Apixaban 2.5 MG BID 10/23 999 AC 10/23 PO 2036 Bisacodyl 10 MG DAILY PRN 10/24 829 AC [place] Docusate Sodium 100 MG BID 10/22 1000 AC 10/23 PO 2036 Ketorolac 15 MG Q6-PRN PRN 10/25 0745 AC Tromethamine IV Magnesium Hydroxide 30 ML DAILY NEEDED PRN 10/24 829 AC PO Morphine Sulfate 2 MG Q2P PRN 10/21 2014 AC 10/24 IV 0516 Oxycodone HCl 5 MG Q4-6 PRN PRN 10/24 0845 AC PO Oxycodone HCl 10 MG Q4-6 PRN PRN 10/24 08 AC PO Oxycodone HCl 15 MG Q4-6 PRN PRN 10/24 0845 AC PO Oxycodone/ 1 TAB Q4P PRN 10/22 844 DC Acetaminophen PO Oxycodone/ 2 TAB Q4P PRN 10/22 844 DC 10/23 Acetaminophen PO 2247 Polyethylene Glycol 17 GM DAILY 10/22 1000 AC 10/23 PO 0949 Sertraline HCl 100 MG DAILY 10/21 1000 AC 10/23 PO 0949 Sodium Phosphate 1 UNIT ONCE PRN 10/23 09 AC 10/23 [place] 0953 Results Last 48 Hours of Labs: Laboratory Tests 10/22 2138 Chemistry Sodium (137 - 145 mmol/L) 143 Potassium (3.5 - 5.1 mmol/L) 4.2 Chloride (98 - 107 mmol/L) 102 Carbon Dioxide (22 - 30 mmol/L) 30 Anion Gap (5 - 16) 10 BUN (7 - 17 mg/dL) 16 Creatinine (0.5 - 1.0 mg/dL) 0.7 Estimated GFR (>60 ml/min) > 60 BUN/Creatinine Ratio (7 - 25 %) 22.9 Hematology CBC w Diff NO MAN DIFF REQ WBC (4.8 - 10.8 /CUMM) 4.3 L RBC (4.20 - 5.40 /CUMM) 3.37 L Hgb (12.0 - 16.0 G/DL) 10.4 L Hct (37 - 47 %) 31.1 L MCV (81.0 - 99.0 FL) 92.4 MCH (27.0 - 31.0 PG) 31.0 MCHC (33.0 - 37.0 G/DL) 33.5 RDW (11.5 - 14.5 %) 13.3 Plt Count (130 - 400 /CUMM) 154 MPV (7.4 - 10.4 FL) 9.1 Gran % (42.2 - 75.2 %) 56.7 Lymphocytes % (20.5 - 51.1 %) 20.0 L Monocytes % (1.7 - 9.3 %) 18.5 H Eosinophils % (0 - 5 %) 4.5 Basophils % (0.0 - 2.0 %) 0.3 Absolute Granulocytes (1.4 - 6.5 /CUMM) 2.4 Absolute Lymphocytes (1.2 - 3.4 /CUMM) 0.9 L Absolute Monocytes (0.10 - 0.60 /CUMM) 0.8 H Absolute Eosinophils (0.0 - 0.7 /CUMM) 0.2 Absolute Basophils (0.0 - 0.2 /CUMM) 0 Urines Urine Color (YEL,AMB,STR) YEL Urine Clarity (CLEAR) CLEAR Urine pH (5.0 - 8.0) 6.0 Ur Specific [place] (1.001 - 1.035) 1.010 Urine Protein (NEG,<30 MG/DL) NEG Urine Ketones (NEG) NEG Urine Nitrite (NEG) NEG Urine Bilirubin (NEG) NEG Urine Urobilinogen (0.1 - 1.0 EU/dl) 0.2 Ur Leukocyte Esterase (NEG) NEG Ur Microscopic SEDIMENT EXAMINED Urine RBC (0 - 5 /HPF) RARE Urine WBC (0 - 2 /HPF) RARE Ur Epithelial Cells (NONE,FEW) RARE Urine Bacteria (NEG/NONE) RARE H Urine Mucus (FEW,NONE) RARE Urine Hemoglobin (NEG) SMALL H Urine Glucose (N MG/DL) NEG Assessment/Plan Assessment/Plan This 56 year old female with hx cp, epilepsy, nonverbal, contracted @ baseline, is POD#3 s/p repair right impacted femoral neck fracture with multiple cannulated screws, ongoing constipation (which is a baseline problem now exacerbated by narcotics and immobility), post-op fever ?atelectasis vs infiltrate, pain not well controlled currently start iv tylenol ATC q6 hours continue oxycodone 5-15 mg q4-6 prn pain add toradol 15 mg iv q6 prn pain try milk of mag / dulcolax prn constipation continue colace bid / miralax daily check labs continue fagan until she has a bm right hip dressing changed eliquis bid - dvt ppx PT eval - partial weight bearing IST. wean o2 as able f/u d/c planning for str when stable will d/w / Gwen Core Measures Venous Thromboembolism VTE Risk Factors Age>40 No Mechanical VTE Prophylaxis d/t N/A MechProphylax Ordered No VTE Pharm Prophylaxis d/t NA PharmProphylax ordered
[2017-10-24 10:10] LABS: ABSOLUTE BASOPHIL COUNT 0 /CUMM (0.0-0.2); ABSOLUTE EOSINOPHIL COUNT 0.2 /CUMM (0.0-0.7); ABSOLUTE GRANULOCYTE CT 2.4 /CUMM (1.4-6.5); ABSOLUTE LYMPH COUNT 0.8 /CUMM (1.2-3.4); ABSOLUTE MONOCYTE COUNT 0.6 /CUMM (0.10-0.60); BASOPHIL % 0.3 % (0.0-2.0); EOSINOPHIL % 4.6 % (0-5); GRANULOCYTE % 59.9 % (42.2-75.2); HEMATOCRIT 29.7 % (37-47); MEAN CORPUSCULAR HGB 31.2 PG (27.0-31.0); MEAN CORPUSCULAR HGB CONC 33.8 G/DL (33.0-37.0); MEAN CORPUSCULAR VOLUME 92.1 FL (81.0-99.0); MEAN PLATELET VOLUME 9.1 FL (7.4-10.4); PLATELET COUNT 178 /CUMM (130-400); RED BLOOD CELL CT 3.22 /CUMM (4.20-5.40)
--- NOTE | 2017-10-24 14:57 | PN- Att Addend ---
Attending Addendum Attending Brief Note Ms. Keller was interviewed and examined with her brother and mother present. Her EMR was reviewed. By signing and with help from her family appears that she is having some discomfort of her right hip. She has had a bowel movement today. She has been afebrile overnight. Her remaining vital signs are stable. She is in mild distress indicating she is having pain at her fracture site. Pulmonary, cardiac, and abdominal exams are benign. WBC and H&H are essentially unchanged from yesterday. Her electrolytes are stable but she has a rise in her BUN today. Urine culture is negative. -She is status post nailing of a right femoral neck fracture. At present we are adjusting her analgesics for pain control. She has been started on oral anticoagulation per the orthopedic team. -She has had laboratory evidence of volume depletion. I agree with IV fluids. -We are continuing with physical therapy as per orthopedics. -We are continuing her home maintenance medications.
[2017-10-24 16:00] VITALS: BP 130/64
[2017-10-24 22:16] VITALS: BP 110/60
[2017-10-25 07:09] VITALS: BP 88/54
--- NOTE | 2017-10-25 07:16 | PN- Medicine Consult ---
Assessment/PlanMedical Consult Assessment/Plan Assessment: Patient is a 56-year-old female with past medical history of cerebral palsy, epilepsy, depression presented with a fall and had right impacted femoral neck fracture which was repaired with multiple cannulated screw on 10/20/2017.Todays postop day 2. Patient will go for rehabilitation at [facility]. The family was very much concerned about giving the antiepileptic tablet valproic acid, of same generic/brand as they were using at home. Vital signs -temperature 98.7, pulse 91, respiratory 20, blood pressure 88/54, SPO2 97% on 1 L of nasal cannula. Patient seen and examined at the bedside recheck the blood pressure which was 100/60. Blood workup -pending Pain score -5 Plan: * Please check the blood pressure * Taper oxygen, and documente saturation on room air * Pain medication according to the pain scale * PT/OT * Possible discharge today Still need to be discussed with attending Problem List: 1. Status post-operative repair of hip fracture Subjective Subjective: Patient is seen and examined at the bedside she was still complaining of pain in the right hip. The local hip area is slightly tender but the dressing is dry. Peripheral pulses were palpable. Patient has nonverbal at baseline but she was using sign language. Objective Last 24 Hrs of Vital Signs/I&O Vital Signs Date Time Temp Pulse Resp B/P B/P Pulse O2 O2 Flow FiO2 Mean Ox Delivery Rate 10/25 0709 98.7 91 20 88/54 97 Nasal Cannula 10/25 0000 92 Nasal 1.0L Cannula 10/24 2216 98.2 100 20 110/60 92 10/24 1600 130/64 10/24 1527 98.6 94 20 98 10/24 0800 94 Nasal 1.0L Cannula Intake & Output 10/25 0800 10/25 0000 10/24 1600 Intake Total 256 909 4845 Output Total 250 300 650 Balance 390 340 750 Intake, IV 400 400 600 Intake, Oral 240 240 800 Output, Urine 250 300 650 Physical Exam General Appearance: no apparent distress, alert, awake, comfortable Current Medications: Current Medications Sig/Chip Start time Last Medication Dose Route Stop Time Status Admin Acetaminophen 1,000 MG Q6H 10/25 0745 DC 10/25 N/A 1 UNIT IV 10/25 0259 0202 Acetaminophen 325 MG Q4P PRN 10/22 844 DC PO Apixaban 2.5 MG BID 10/23 1000 AC 10/24 PO 2049 Bisacodyl 10 MG DAILY PRN 10/24 0830 AC 10/24 [place] 1011 Docusate Sodium 100 MG BID 10/22 1000 AC 10/24 PO 2049 Ketorolac 15 MG Q6-PRN PRN 10/24 0845 DC 10/24 Tromethamine IV 1630 Magnesium Hydroxide 30 ML DAILY NEEDED PRN 10/24 0830 AC 10/24 PO 1012 Morphine Sulfate 2 MG Q2P PRN 10/21 2015 AC 10/25 IV 0616 Oxycodone HCl 5 MG Q4-6 PRN PRN 10/24 0845 AC PO Oxycodone HCl 10 MG Q4-6 PRN PRN 10/24 0845 AC PO Oxycodone HCl 15 MG Q4-6 PRN PRN 10/24 0845 AC 10/24 PO 2053 Oxycodone/ 1 TAB Q4P PRN 10/22 0845 DC Acetaminophen PO Oxycodone/ 2 TAB Q4P PRN 10/22 0845 DC 10/23 Acetaminophen PO 2248 Polyethylene Glycol 17 GM DAILY 10/22 1000 AC 10/24 PO 1013 Sertraline HCl 100 MG DAILY 10/21 1000 AC 10/24 PO 1013 Sodium Chloride 1,000 ML Q20H 10/24 1045 DC 10/24 IV 10/25 0644 1148 Sodium Phosphate 1 UNIT ONCE PRN 10/23 0900 AC 10/23 [place] 0953 Results Last 24 Hrs Lab/Jack Results: Laboratory Tests 10/24/17 0905: Anion Gap 9, Estimated GFR > 60, BUN/Creatinine Ratio 40.0 H, Glucose 139 H, Magnesium 2.0, CBC w Diff NO MAN DIFF REQ, RBC 3.22 L, MCV 92.1, MCH 31.2 H, MCHC 33.8, RDW 13.0, MPV 9.1, Gran % 59.9, Lymphocytes % 20.4 L, Monocytes % 14.8 H, Eosinophils % 4.6, Basophils % 0.3, Absolute Granulocytes 2.4, Absolute Lymphocytes 0.8 L, Absolute Monocytes 0.6, Absolute Eosinophils 0.2, Absolute Basophils 0
--- NOTE | 2017-10-25 07:39 | PN- Orthopedic ---
Subjective Subjective: No acute events overnight, mildly hypotensive this morning however asymptomatic, previous morning blood pressures also running a bit low. Objective Vital Signs and I&Os Vital Signs Date Time Temp Pulse Resp B/P B/P Pulse O2 O2 Flow FiO2 Mean Ox Delivery Rate 10/25 0709 98.7 91 20 88/54 97 Nasal Cannula 10/25 0000 92 Nasal 1.0L Cannula 10/24 2216 98.2 100 20 110/60 92 10/24 1600 130/64 10/24 1527 98.6 94 20 98 10/24 0800 94 Nasal 1.0L Cannula Intake & Output 10/25 0800 10/25 0000 10/24 1600 10/24 0800 10/24 0000 10/23 1600 Intake Total 022 709 4696 250 260 800 Output Total 250 300 650 275 350 700 Balance 390 340 750 -25 -90 100 Intake, IV 400 400 600 10 20 Intake, Oral 240 240 800 240 240 800 Output, Urine 250 300 650 275 350 700 Patient 113 lb Weight Weight Bed scale Measurement Method Physical Exam: Well-developed well-nourished no apparent distress. HEENT: Atraumatic, extraocular motion intact Neck: Supple, no lymphadenopathy Respiratory: No respiratory distress Extremities: No edema RIGHT lower extremity hip dressing in place, Dressing clean dry and intact with minimal bloody staining Incision without erythema Mild thigh swelling No signs of infection. No shortening or rotation Hip range of motion is limited and without unexpected pain Neurovascularly intact distally Bilateral calves are supple, nontender. Neuro: Alert Skin: Warm and dry, no rash on exposed skin Glez catheter in place, scant blood-tinged, likely traumatic Results Last 48 Hours of Labs: Laboratory Tests 10/24 09 Chemistry Sodium (137 - 145 mmol/L) 142 Potassium (3.5 - 5.1 mmol/L) 4.0 Chloride (98 - 107 mmol/L) 100 Carbon Dioxide (22 - 30 mmol/L) 33 H Anion Gap (5 - 16) 9 BUN (7 - 17 mg/dL) 24 H Creatinine (0.5 - 1.0 mg/dL) 0.6 Estimated GFR (>60 ml/min) > 60 BUN/Creatinine Ratio (7 - 25 %) 40.0 H Glucose (65 - 99 mg/dL) 139 H Magnesium (1.6 - 2.3 mg/dL) 2.0 Hematology CBC w Diff NO MAN DIFF REQ WBC (4.8 - 10.8 /CUMM) 4.0 L RBC (4.20 - 5.40 /CUMM) 3.22 L Hgb (12.0 - 16.0 G/DL) 10.0 L Hct (37 - 47 %) 29.7 L MCV (81.0 - 99.0 FL) 92.1 MCH (27.0 - 31.0 PG) 31.2 H MCHC (33.0 - 37.0 G/DL) 33.8 RDW (11.5 - 14.5 %) 13.0 Plt Count (130 - 400 /CUMM) 178 MPV (7.4 - 10.4 FL) 9.1 Gran % (42.2 - 75.2 %) 59.9 Lymphocytes % (20.5 - 51.1 %) 20.4 L Monocytes % (1.7 - 9.3 %) 14.8 H Eosinophils % (0 - 5 %) 4.6 Basophils % (0.0 - 2.0 %) 0.3 Absolute Granulocytes (1.4 - 6.5 /CUMM) 2.4 Absolute Lymphocytes (1.2 - 3.4 /CUMM) 0.8 L Absolute Monocytes (0.10 - 0.60 /CUMM) 0.6 Absolute Eosinophils (0.0 - 0.7 /CUMM) 0.2 Absolute Basophils (0.0 - 0.2 /CUMM) 0 Assessment/Plan Assessment/Plan Postop day 4 status post right hip ORIF with percutaneous pinning secondary to right femoral neck fracture. Continue home meds Toe-touch weight-bearing right lower extremity Pain medicine as needed. Out of bed with physical therapy. DC Glez catheter, trial of void, may need Glez replacement either here or at [facility] if she continues to retain urine Toe-touch weightbearing. Transfer to skilled facility today, 2 week follow-up in office Core Measures Venous Thromboembolism VTE Risk Factors Age>40 No Mechanical VTE Prophylaxis d/t N/A MechProphylax Ordered No VTE Pharm Prophylaxis d/t NA PharmProphylax ordered
[2017-10-25 09:36] LABS: ABSOLUTE BASOPHIL COUNT 0 /CUMM (0.0-0.2); ABSOLUTE EOSINOPHIL COUNT 0.4 /CUMM (0.0-0.7); ABSOLUTE GRANULOCYTE CT 2.7 /CUMM (1.4-6.5); ABSOLUTE MONOCYTE COUNT 0.7 /CUMM (0.10-0.60); BASOPHIL % 0.4 % (0.0-2.0); EOSINOPHIL % 7.6 % (0-5); GRANULOCYTE % 56.8 % (42.2-75.2); MEAN CORPUSCULAR HGB CONC 33.2 G/DL (33.0-37.0); MEAN CORPUSCULAR VOLUME 93.2 FL (81.0-99.0); MEAN PLATELET VOLUME 8.7 FL (7.4-10.4); PLATELET COUNT 185 /CUMM (130-400); RED BLOOD CELL CT 3.11 /CUMM (4.20-5.40); WHITE BLOOD CELL COUNT 4.8 /CUMM (4.8-10.8)
[2017-10-25 10:20] VITALS: BP 88/54
== END 2017-10-25 13:30 | DRG 481 ==
LOC: ERH 17:53 → ERHI 22:53 → 2NA 22:53 → ENRESERV 10-21 01:18 → 2NA 10-21 02:34 → ENTRNSPT 10-21 19:28 → EDTRNSPT 10-21 19:35 → EDTRNSPTSTS 10-21 19:35 → CMPTRNSPT 10-21 19:54 → 2NA 10-24 08:17 → ENPENDDIS 10-25 07:48 → 2NA 10-25 13:30
PROVIDERS: Physician Assistant; Physician Assistant Medical; Physician Assistant Surgical
PROC: 0QS604Z Reposition Right Upper Femur with Internal Fixation Device, Open Approach (ICD-10-PCS; principal; 2017-10-21)
DX: S72.011A Unspecified intracapsular fracture of right femur, initial encounter for closed fracture (principal); E46 Unspecified protein-calorie malnutrition; Z68.1 Body mass index [BMI] 19.9 or less, adult; F32.9 Major depressive disorder, single episode, unspecified; G80.9 Cerebral palsy, unspecified; Z91.81 History of falling; Y92.008 Other place in unspecified non-institutional (private) residence as the place of occurrence of the external cause; G40.909 Epilepsy, unspecified, not intractable, without status epilepticus; R32 Unspecified urinary incontinence; M20.092 Other deformity of left finger(s); W18.30XA Fall on same level, unspecified, initial encounter; Y92.099 Unspecified place in other non-institutional residence as the place of occurrence of the external cause; F41.9 Anxiety disorder, unspecified; K59.00 Constipation, unspecified; M24.542 Contracture, left hand
CPT/HCPCS: 2NAP; ERO; 36415; 71045; 73130-LT; 73502-RT; 74176; 81001; 82436; 87086; 93005; 93010; 96372; 96374; 97162-GP; 97530-GO; J0131; J0690; J1630; J1644; J7042

== ENCOUNTER 2017-11-01 15:54 | Emergency (ER) | payer OTHER ==
[~2017-11-01 15:54] MED LIST: COLACE100 M1 PO; ELIQUIS2.5 M1 PO; MIRALAX17 G1 PO; PERCOCET 5-3251 EACH PO; VALPROIC ACID250 M1 PO; ZOLOFT100 M1 PO
--- NOTE | 2017-11-01 16:01 | ED GENERAL ADULT ---
See Addendum History of Present Illness General Chief Complaint: Fever Stated Complaint: FEVER, SWELLING, R HIP SURGERY X8 DAYS AGO Source: patient, family, old records Exam Limitations: CEREBAL PALSY Vital Signs & Intake/Output Vital Signs & Intake/Output Vital Signs Date Time Temp Pulse Resp B/P B/P Pulse O2 O2 Flow FiO2 Mean Ox Delivery Rate 11/01 1603 99.8 11/01 1558 116 17 116/76 96 Room Air Allergies Coded Allergies: No Known Drug Allergies (Intermediate, NONE 10/20/17) Reconcile Medications Apixaban (Eliquis) 2.5 MG TABLET 1 TAB PO BID anticoagulation Docusate Sodium (Colace) 100 MG CAPSULE 1 CAP PO BID CONSITPATION DISCONTINUE USE IF YOU DEVELOP LOOSE STOOL OR DIARRHEA Oxycodone HCl/Acetaminophen (Percocet 5-325 MG Tablet) 5 MG-325 MG TABLET 1-2 TAB PO Q4-6 PRN PAIN Polyethylene Glycol 3350 (Miralax) 17 GRAM POWD.PACK 1 PAC PO DAILY CONSTIPATION dissolve in water, DISCONTINUE USE IF YOU DEVELOP LOOSE STOOL OR DIARRHEA Sertraline HCl (Zoloft) 100 MG TABLET 1 TAB PO DAILY DEPRESSION (Reported) brand name, no generic Valproic Acid 250 MG CAPSULE 3 CAP PO BID SEIZURES (Reported) brand name, no generic Triage Note: PT TO ED BY AMBULANCE FROM [facility]. HX CP. HAD FALL 8 DAYS AGO WITH RIGHT HIP FX AND SURGERY DONE AT [facility]. COMES TO ED TODAY WITH NEW FEVER 104. Triage Nurses Notes Reviewed? yes Onset: Gradual Duration: getting worse Timing: recent history Severity: severe Severity Numbers: 7 HPI: Patient is a 56-year-old female with a past medical history of cerebral palsy and was history is limited however old records indicate that patient had a mechanical fall on October 20 and had concerns of a right subcapital femoral fracture where Dr. Hidalgo performed surgical intervention AND Repair right impacted femoral neck fracture with multiple cannulated screws. Patient was discharged from [facility] on October 29 and was transferred to prison facility in which family who is present today state that yesterday patient was in normal state of health however nursing staff yesterday evening and today noted possible redness to the right hip and 104 temperature today (Nathan Yeung) Past History Travel History Traveled to [facility] past 21 day No Medical History Any Pertinent Medical History? 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 No (Nathan Yeung) Review of Systems Review of Systems Constitutional: Reports: see HPI, fever. EENTM: Reports: no symptoms. Respiratory: Reports: no symptoms. Cardiovascular: Reports: no symptoms. GI: Reports: no symptoms. Genitourinary: Reports: no symptoms. Musculoskeletal: Reports: see HPI. Skin: Reports: see HPI. Neurological/Psychological: Reports: no symptoms. Hematologic/Endocrine: Reports: no symptoms. Immunologic/Allergic: Reports: no symptoms. All Other Systems: Reviewed and Negative (Nathan Yeung) Physical Exam Physical Exam General Appearance: no apparent distress, alert Head: atraumatic Eyes: Bilateral: normal appearance. Ears, Nose, Throat: hearing grossly normal Neck: normal inspection Respiratory: normal breath sounds, no respiratory distress Cardiovascular: tachycardia Gastrointestinal: normal bowel sounds, soft, non-tender Neurologic/Psych: awake Skin: intact Comments: Right lateral hip noted incision approximately 6 cm with intact dominic with surrounding moderate swelling, warmth, erythema and point tenderness noted surrounding ecchymosis no active discharge Core Measures ACS in differential dx? No CVA/TIA Diagnosis: No Sepsis Present: No Sepsis Focused Exam Completed? No (Nathan Yenug) Progress Differential Diagnoses I considered the following diagnoses in my evaluation of the patient: [Septic joint sepsis and infected hardware cellulitis abscess] Plan of Care: Orders Procedure Date/time Status Nothing by Mouth 11/02 B Active Admit to inpatient 11/01 1827 Active XRY-PORTABLE CHEST XRAY 11/01 180 Active Glez, Insertion/Removal/Asses 11/01 180 Active URINALYSIS 11/01 180 Active BLOOD CULTURE 11/01 1611 Active LACTIC ACID 11/01 161 Complete COMPREHENSIVE METABOLIC PANEL 11/01 161 Complete CBC WITHOUT DIFFERENTIAL 11/01 161 Complete Laboratory Tests 11/01/17 1627: Anion Gap 11, Estimated GFR > 60, BUN/Creatinine Ratio 47.1 H, Glucose 106 H, Lactic Acid 0.8, Calcium 8.7, Total Bilirubin 0.6, AST 31, ALT 37, Alkaline Phosphatase 91, Total Protein 6.7, Albumin 3.5, Globulin 3.2, Albumin/Globulin Ratio 1.1, CBC w Diff NO MAN DIFF REQ, RBC 3.40 L, MCV 91.2, MCH 29.7, MCHC 32.5 L, RDW 14.6 H, MPV 7.7, Gran % 58.2, Lymphocytes % 19.8 L, Monocytes % 20.7 H, Eosinophils % 1.0, Basophils % 0.3, Absolute Granulocytes 3.0, Absolute Lymphocytes 1.0 L, Absolute Monocytes 1.1 H, Absolute Eosinophils 0.1, Absolute Basophils 0 Microbiology 11/01 1630 BLOOD: Blood Culture - RECD 11/01 1627 BLOOD: Blood Culture - RECD After initial presentation I did contact the surgical PA who did notify Dr. Hidalgo of patient's physical presentation in the emergency room On examination there is considerable source of infection to the surgical site and the hardware placement Patient is diaphoretic and has a low-grade temp however LEVAQUIN X 1 AND Tylenol was administered prior to arrival to the emergency room per nursing staff at patient's prison facility CT scan was resulted showing concerns of hematoma Surgical PA was aware 11/01/2017 5:41:31 PM orthopedics WAS paged Discussed the clinical presentation blood work and CT scan of the patient with orthopedic Dr. MARSHALL and which he advised ME that his suspicion of infection is low and to not provide patient with antibiotics at this time however to follow up on Wednesday with orthopedic Dr. Hidalgo The CT scan does show concerns of hematoma and patient was afebrile Family was concerned of a 104 temperature prior to arrival however denies any observable cough abdominal pain nausea vomiting or any other source of infection Chest x-ray and urine analysis will be ordered and patient again has nontender abdomen Discussed hand off with DR HOUSER I did discuss with the brother of the disposition and plan at this time and he agrees and was strongly advised to follow-up on Wednesday with orthopedic Dr. Hidalgo Diagnostic Imaging: Viewed by Me: CT Scan. Radiology Impression: acute abnormality Initial ED EKG: none Hand-Off Endorsed To: Evans Houser MD Endorsed Time: 1805 Pending: other, Xray Comments: PATIENT: BERYL LEE PRESENT AGE: 56 PATIENT ACCOUNT NO: [id number] : 61 LOCATION: [facility] ORDERING PHYSICIAN: Nathan CORONEL SERVICE DATE: 11/01/17 EXAM TYPE: CAT - CT LOWER EXT W IV CONTRAST EXAMINATION: CT LOWER EXTREMITY WITH CONTRAST, RIGHT CLINICAL INFORMATION: 56-year-old female with fever, pain and swelling at surgical site, status post fixation of subcapital femoral fracture. COMPARISON: 10/20/2017 TECHNIQUE: Multidetector CT imaging examination to the right hip was performed with intravenous administration of 75 mL of Optiray 320 nonionic contrast material. DLP: 210 mGy-cm FINDINGS: The visualized pelvic bones are intact. Alignment is normal at the right femoroacetabular joint. The four percutaneously placed femoral neck screws are in satisfactory position. None of the screws penetrate through the cortical bone of the femoral head, status post recent fixation of the nondisplaced subcapital femoral fracture. A bone island is present within the femoral head. No evidence of avascular necrosis. No hip joint effusion or pericapsular fluid collection. Deep to the skin dominic at the lateral aspect of the hip, there is a 2.2 x 3.2 x 4.8 cm collection that is suboptimally evaluated due to streak artifact produced by the fixation hardware. The collection appears hyperdense, attenuation of 75 Hounsfield units (image 39, series 2), compatible with a hematoma. There is edema within lateral subcutaneous tissues. No pelvic fluid collection or pelvic abscess. The uterus and urinary bladder are grossly unremarkable. No iliac or inguinal lymphadenopathy. IMPRESSION: 1. Status post percutaneous fixation of the subcapital femoral neck fracture. The fixation screws are in satisfactory position. 2. The hyperdense 2.2 x 3.2 x 4.8 cm collection located within subcutaneous tissues deep to the skin dominic is compatible with a hematoma. DICTATED BY: Haider Connelly MD DATE/TIME DICTATED:11/01/171718 (Nathan Yeung) Departure Departure Disposition: STILL A PATIENT Condition: Stable Clinical Impression Primary Impression: Hematoma Referrals: Brannon Tay MD Additional Instructions: If symptoms worsen or if Beryl develops new concerning symptom return to emergency, follow-up on Wednesday with Dr. Hidalgo Departure Forms: Customer Survey General Discharge Information (Nathan Yeung) Admission Note Spoke With: Jb Hidalgo MD Documentation of Exam: Documentation of any treatments & extenuating circumstances including Concerns Regarding Discharge (functional status, medication knowledge or non-compliance, living conditions, etc.) that warrant an admission rather than observation: Orthopedic management serial lab exam follow cultures medication adjustment physical therapy continuing care discharge planning PA/WELFARE ELIGIBILITY INTERVIEWER Co-Sign Statement Statement: ED Attending supervision documentation- I saw and evaluated the patient. I have also reviewed all the pertinent lab results and diagnostic results. I agree with the findings and the plan of care as documented in the PA's/WELFARE ELIGIBILITY INTERVIEWER's documentation. x I have reviewed the ED Record and agree with the PA's/WELFARE ELIGIBILITY INTERVIEWER's documentation. [] Additions or exceptions (if any) to the PAs/WELFARE ELIGIBILITY INTERVIEWER's note and plan are summarized below: [] (Vivi AMAYA,Evans) Critical Care Note Critical Care Note Critical Care Time: non-applicable (Nathan Yeung)
[2017-11-01 16:44] LABS: ABSOLUTE BASOPHIL COUNT 0 /CUMM (0.0-0.2); ABSOLUTE EOSINOPHIL COUNT 0.1 /CUMM (0.0-0.7); ABSOLUTE MONOCYTE COUNT 1.1 /CUMM (0.10-0.60); BASOPHIL % 0.3 % (0.0-2.0); GRANULOCYTE % 58.2 % (42.2-75.2); MEAN CORPUSCULAR HGB 29.7 PG (27.0-31.0); MEAN CORPUSCULAR HGB CONC 32.5 G/DL (33.0-37.0); MEAN CORPUSCULAR VOLUME 91.2 FL (81.0-99.0); MEAN PLATELET VOLUME 7.7 FL (7.4-10.4); PLATELET COUNT 416 /CUMM (130-400); RBC DISTRIBUTION WIDTH 14.6 % (11.5-14.5); WHITE BLOOD CELL COUNT 5.2 /CUMM (4.8-10.8)
--- NOTE | 2017-11-01 17:32 | CT SCAN REPORT ---
EXAMINATION: CT LOWER EXTREMITY WITH CONTRAST, RIGHT CLINICAL INFORMATION: 56-year-old female with fever, pain and swelling at surgical site, status post fixation of subcapital femoral fracture. COMPARISON: 10/20/2017 TECHNIQUE: Multidetector CT imaging examination to the right hip was performed with intravenous administration of 75 mL of Optiray 320 nonionic contrast material. DLP: 210 mGy-cm FINDINGS: The visualized pelvic bones are intact. Alignment is normal at the right femoroacetabular joint. The four percutaneously placed femoral neck screws are in satisfactory position. None of the screws penetrate through the cortical bone of the femoral head, status post recent fixation of the nondisplaced subcapital femoral fracture. A bone island is present within the femoral head. No evidence of avascular necrosis. No hip joint effusion or pericapsular fluid collection. Deep to the skin dominic at the lateral aspect of the hip, there is a 2.2 x 3.2 x 4.8 cm collection that is suboptimally evaluated due to streak artifact produced by the fixation hardware. The collection appears hyperdense, attenuation of 75 Hounsfield units (image 39, series 2), compatible with a hematoma. There is edema within lateral subcutaneous tissues. No pelvic fluid collection or pelvic abscess. The uterus and urinary bladder are grossly unremarkable. No iliac or inguinal lymphadenopathy. IMPRESSION: 1. Status post percutaneous fixation of the subcapital femoral neck fracture. The fixation screws are in satisfactory position. 2. The hyperdense 2.2 x 3.2 x 4.8 cm collection located within subcutaneous tissues deep to the skin dominic is compatible with a hematoma.
--- NOTE | 2017-11-01 18:37 | RADIOLOGY REPORT ---
EXAMINATION: CHEST 1 VIEW CLINICAL INFORMATION: Fever. COMPARISON: 10/22/2017. TECHNIQUE: An AP view of the chest is provided. FINDINGS: The cardiac silhouette is not enlarged. The mediastinal and hilar contours are unremarkable. There are neither pleural effusions nor pneumothoraces. There are no consolidations. The osseous structures are unremarkable. IMPRESSION: No evidence for acute disease.
[2017-11-01 21:42] VITALS: BP 124/56
--- NOTE | 2017-11-01 22:11 | Cons- Orthopedic ---
General Information and HPI Consulting Request Date of Consult: 11/01/17 Requested By: ED Reason for Consult: question of surgical site infection History of Present Illness: 56yoF sent in from [facility] due to surgical site pain/edema and fever. She is POD11 sp ORIF Right impacted femoral neck fracture with multiple cannulated screws due to fall (Dr. Hidalgo). She was discharged from the hospital approx 1 week ago, and has been residing at [facility] sicne discharge. Per facility, pt had isolated temperature of 104 last night. Since then, she has been afebrile and has not had a fever while here in the ED. There was concern regarding pain, edema and redness at her r hip incision, and was sent in for evaluation. Per family, pt has been doing very well at [facility]. She is NWB to [facility] and does have many limitations at baseline (contracted, cerebral palsy, nonverbal), though was working with pt and improving. Of note, pt is nonverbal due to comorbidities including cp, though does use limited sign language to communicate. Pts family is very involved, and helpful in providing history. Allergies/Medications Allergies: Coded Allergies: No Known Drug Allergies (Intermediate, NONE 10/20/17) Home Med List: Apixaban (Eliquis) 2.5 MG TABLET 1 TAB PO BID anticoagulation Docusate Sodium (Colace) 100 MG CAPSULE 1 CAP PO BID CONSITPATION DISCONTINUE USE IF YOU DEVELOP LOOSE STOOL OR DIARRHEA Oxycodone HCl/Acetaminophen (Percocet 5-325 MG Tablet) 5 MG-325 MG TABLET 1-2 TAB PO Q4-6 PRN PAIN Polyethylene Glycol 3350 (Miralax) 17 GRAM POWD.PACK 1 PAC PO DAILY CONSTIPATION dissolve in water, DISCONTINUE USE IF YOU DEVELOP LOOSE STOOL OR DIARRHEA Sertraline HCl (Zoloft) 100 MG TABLET 1 TAB PO DAILY DEPRESSION (Reported) brand name, no generic Valproic Acid 250 MG CAPSULE 3 CAP PO BID SEIZURES (Reported) brand name, no generic Past History Medical History Neurological: CEREBRAL PALSY EPILEPSY Respiratory: pneumonia Gastrointestinal: constipation Renal: urinary incontinence Psychiatric: anxiety, depression Surgical History Pertinent Surgical History: Right hip ORIF 10/21/17 (livia) Psychosocial History Where Do You Live? Acute Rehab [facility]TO[facility] Use: denies use Illicit Drug Use: denies illicit drug use Exam & Diagnostic Data Vital Signs and I&O Vital Signs Date Time Temp Pulse Resp B/P B/P Pulse O2 O2 Flow FiO2 Mean Ox Delivery Rate 11/012 97.2 106 20 124/56 93 Room Air 11/01 1853 98.4 111 18 95 Room Air 11/01 1721 Room Air 11/01 1721 98.7 109 18 114/78 97 Room Air 11/01 1603 99.8 11/01 1558 116 17 116/76 96 Room Air Physical Exam: gen- nad card-s1s2 pulm- ctab abd- soft nt ext- RLE: hip incision closed with dominic, no drainage. at stapleline, ttp, fullness appreciated, clip erythema present. no cellulitis, no excessive warmth. dependent ecchymosis posterior hip and posterior lower thigh, also ttp. gross sensate/motor intact bl feet/toes, feet warm. Last 24 Hours of Labs: Laboratory Tests 11/01 11/01 1911 1627 Chemistry Sodium (137 - 145 mmol/L) 145 Potassium (3.5 - 5.1 mmol/L) 4.0 Chloride (98 - 107 mmol/L) 105 Carbon Dioxide (22 - 30 mmol/L) 28 Anion Gap (5 - 16) 11 BUN (7 - 17 mg/dL) 33 H Creatinine (0.5 - 1.0 mg/dL) 0.7 Estimated GFR (>60 ml/min) > 60 BUN/Creatinine Ratio (7 - 25 %) 47.1 H Glucose (65 - 99 mg/dL) 106 H Lactic Acid (0.7 - 2.1 mmol/L) Cancelled 0.8 Calcium (8.4 - 10.2 mg/dL) 8.7 Total Bilirubin (0.2 - 1.3 mg/dL) 0.6 AST (14 - 36 U/L) 31 ALT (9 - 52 U/L) 37 Alkaline Phosphatase (<127 U/L) 91 Total Protein (6.3 - 8.2 g/dL) 6.7 Albumin (3.5 - 5.0 g/dL) 3.5 Globulin (1.9 - 4.2 gm/dL) 3.2 Albumin/Globulin Ratio (1.1 - 2.2 %) 1.1 Hematology CBC w Diff NO MAN DIFF REQ WBC (4.8 - 10.8 /CUMM) 5.2 RBC (4.20 - 5.40 /CUMM) 3.40 L Hgb (12.0 - 16.0 G/DL) 10.1 L Hct (37 - 47 %) 31.0 L MCV (81.0 - 99.0 FL) 91.2 MCH (27.0 - 31.0 PG) 29.7 MCHC (33.0 - 37.0 G/DL) 32.5 L RDW (11.5 - 14.5 %) 14.6 H Plt Count (130 - 400 /CUMM) 416 H MPV (7.4 - 10.4 FL) 7.7 Gran % (42.2 - 75.2 %) 58.2 Lymphocytes % (20.5 - 51.1 %) 19.8 L Monocytes % (1.7 - 9.3 %) 20.7 H Eosinophils % (0 - 5 %) 1.0 Basophils % (0.0 - 2.0 %) 0.3 Absolute Granulocytes (1.4 - 6.5 /CUMM) 3.0 Absolute Lymphocytes (1.2 - 3.4 /CUMM) 1.0 L Absolute Monocytes (0.10 - 0.60 /CUMM) 1.1 H Absolute Eosinophils (0.0 - 0.7 /CUMM) 0.1 Absolute Basophils (0.0 - 0.2 /CUMM) 0 Imaging Results: SERVICE DATE: 11/01/17 EXAM TYPE: CAT - CT LOWER EXT W IV CONTRAST EXAMINATION: CT LOWER EXTREMITY WITH CONTRAST, RIGHT CLINICAL INFORMATION: 56-year-old female with fever, pain and swelling at surgical site, status post fixation of subcapital femoral fracture. COMPARISON: 10/20/2017 TECHNIQUE: Multidetector CT imaging examination to the right hip was performed with intravenous administration of 75 mL of Optiray 320 nonionic contrast material. DLP: 210 mGy-cm FINDINGS: The visualized pelvic bones are intact. Alignment is normal at the right femoroacetabular joint. The four percutaneously placed femoral neck screws are in satisfactory position. None of the screws penetrate through the cortical bone of the femoral head, status post recent fixation of the nondisplaced subcapital femoral fracture. A bone island is present within the femoral head. No evidence of avascular necrosis. No hip joint effusion or pericapsular fluid collection. Deep to the skin dominic at the lateral aspect of the hip, there is a 2.2 x 3.2 x 4.8 cm collection that is suboptimally evaluated due to streak artifact produced by the fixation hardware. The collection appears hyperdense, attenuation of 75 Hounsfield units (image 39, series 2), compatible with a hematoma. There is edema within lateral subcutaneous tissues. No pelvic fluid collection or pelvic abscess. The uterus and urinary bladder are grossly unremarkable. No iliac or inguinal lymphadenopathy. IMPRESSION: 1. Status post percutaneous fixation of the subcapital femoral neck fracture. The fixation screws are in satisfactory position. 2. The hyperdense 2.2 x 3.2 x 4.8 cm collection located within subcutaneous tissues deep to the skin dominic is compatible with a hematoma. Assessment/Plan Assessment/Plan A- 56yoF POD11 sp R hip ORIF, with collection at surgical site- most likely hematoma. Infection unlikely, due to lack of cellulitis, no leukocytosis, no left shift, no persistent fevers. P- dw Dr. Hidalgo. Rec: warm soaks. prn pain meds. continue PT, NWB to [facility]. FU as outpt in his office on of this week. No drainage/antibiotics/ inpatient care needed at this time as does not appear to be infectious in nature. Consult Acknowledgment - Thank you for your consult request.
== END 2017-11-01 22:25 ==
LOC: ERH 15:54
PROVIDERS: Physician Assistant
DX: L76.32 Postprocedural hematoma of skin and subcutaneous tissue following other procedure (principal); R50.9 Fever, unspecified; G80.9 Cerebral palsy, unspecified
CPT/HCPCS: 71045; 87040; 96374; 96376